=== PATIENT | male | born 1980 | race Caucasian/White ===

== ENCOUNTER 2017-08-09 12:27 | Day surgery (SDC) | payer BC, SELFPAY ==
[2017-08-08 09:34] VITALS: BMI 25.0
[2017-08-09 12:44] VITALS: BP 147/77; PULSE 75; RESP 18; TEMP 36.8; O2SAT 99
[2017-08-09 14:36] VITALS: BP 143/83; PULSE 72; RESP 18; TEMP 37.1; O2SAT 100
--- NOTE | 2017-08-30 14:10 | [facility].OPNOTE ---
Date of procedure: 08/30/17 Pre-op Diagnosis:: Preop diagnosis: Desires sterilization Postop diagnosis: Same Procedure: Bilateral vasectomy Surgeon: Perez Govea Anesthesia: Local Indications: None Condition: Stable to recovery room Indications this is a 37-year-old white male seen previously in the office for vasectomy consultation. He presents today for the procedure. Description of operation: Patient taken to the operating room after informed consent was obtained. He was placed operating table in the supine position. He was prepped and draped in the standard surgical fashion. Local anesthetic placed into the midline raphae the left vas was brought up to the midline raphae and local anesthetic placed in and around the vas deferens as well. Scalpel was used to make a small 1-1/2 cm incision in the midline raphae. The vasa was grasped and brought up through the incision. The basal sheath was incised and the adventitial tissue was stripped off of the vas proper. The vas was clipped proximally with 2 hemoclips and distally with 1. A 1 cm segment of the vas was then excised and removed and the ends of the bands were cauterized to obliterate the lumen. Hemostasis achieved in the past back in the left hemiscrotum. The right vas was then grasped between fingers and brought up to the incision. Local anesthetic was placed in and around the right vas deferens as well. After minute the right vas was grasped with a tenaculum and brought up through the incision. The basal sheath was incised and the vas was doubly clipped as on the left side. A segment excised and the ends of the vas were cauterized. The stasis achieved and vas was placed back into the right hemiscrotum. The incision was then closed with a 3-0 chromic in a horizontal mattress fashion. Sterile dressing applied. The patient tolerated well. Post-op Diagnosis:: Desires sterilization Procedure performed:: Bilateral vasectomy Surgeon:: Perez Govea MD Anesthesia: local Estimated blood loss (mL): 0 Operative findings:: Normal scrotum and testicles Operative note:: See the above note Condition: stable Disposition: PACU Specimens:: None Complications:: None
== END 2017-08-09 14:25 | disposition home or self-care (01) ==
LOC: OR 12:29
PROVIDERS: PCP Family Medicine; Visit Provider Urology
PROC: (CPT 55250; principal; 2017-08-09 13:30)
DX: Z30.2 Encounter for sterilization (principal)
CPT/HCPCS: 55250